=== PATIENT | male | born 1965 | race African-American/Black ===

== ENCOUNTER 2021-12-05 05:47 | Inpatient (IN) | payer BC, OTHER ==
[~2021-12-05] VITALS: Ht 200.7 cm; Wt 147.4 kg
--- NOTE | 2021-12-05 06:00 | NUR ---
TO ER BED 2. BIBS C/O L SIDED CHEST PRESSURE RADIATING TO THE L ARM. PT DENIES AND N/V OR SOB. CHANGED INTO GOWN. CONNECTED TO MONITOR. NOT IN RESPIRATORY DISTRESS. AWAITING MD PEREZ
--- NOTE | 2021-12-05 06:07 | NUR ---
LAB AT BEDSIDE
--- NOTE | 2021-12-05 06:09 | NUR ---
PAGED SCHOOL BUSINESS ADMINISTRATOR.
[2021-12-05] MEDS ORDERED: ASPIRIN 325 MG TABLET ONE (06:20)
--- NOTE | 2021-12-05 06:23 | NUR ---
XRAY AT BEDSIDE
[2021-12-05] MEDS ORDERED: ASPIRIN 325 MG TABLET PO ONE (06:30)
[2021-12-05 06:42] LABS: BASOPHILS # (AUTO) 0.1 K/uL (0.0-0.2); BASOPHILS % (AUTO) 0.7 % (0.0-2.0); EOSINOPHILS % (AUTO) 2.6 % (0.0-6.0); HEMATOCRIT 40 % (39-51); HEMOGLOBIN 13.1 g/dL (13.5-17.5); LYMPHOCYTES # (AUTO) 3.5 K/uL (0.8-4.8); LYMPHOCYTES % (AUTO) 37.6 % (20.0-44.0); MEAN CORPUSCULAR HGB CONC 33 g/dl (31.0-36.0); MEAN CORPUSCULAR VOLUME 82 fL (80-96); MONOCYTES # (AUTO) 0.9 K/uL (0.1-1.30); MONOCYTES % (AUTO) 9.3 % (2.0-12.0); NEUTROPHILS # (AUTO) 4.7 K/uL (1.8-8.9); NEUTROPHILS % (AUTO) 49.8 % (43.0-81.0); PLATELET COUNT (AUTO) 241 K/uL (150-450); RED BLOOD CELL COUNT(AUTO) 4.87 MIL/uL (4.5-6.0); WHITE BLOOD COUNT (AUTO) 9.4 K/uL (4.3-11.0)
[2021-12-05 07:09] LABS: CARBON DIOXIDE 14 mmol/L (21-32); CHLORIDE 102 mmol/L (98-107); CREATININE 1.1 mg/dL (0.6-1.3); GLUCOSE 141 mg/dL (74-106); POTASSIUM 3.7 mmol/L (3.5-5.1); SODIUM SERUM 136 mmol/L (136-145); UREA NITROGEN, BLOOD 17 mg/dL (7-18)
--- NOTE | 2021-12-05 07:26 | NUR ---
COVID ANTIGEN SWAB COLLECTED AND SENT TO LAB
--- NOTE | 2021-12-05 08:10 | NUR ---
MOVE SHEET SUBMITTED.
[2021-12-05] MEDS ORDERED: HYDR25TA4 PO (08:30)
[2021-12-05] MEDS ORDERED: AMLO-212 PO (08:30)
[2021-12-05] MEDS ORDERED: AMLODIPINE BESYLATE 5 MG TABLET PO ONE (11:00)
[2021-12-05] MEDS ORDERED: HYDROCHLOROTHIAZIDE 25 MG TABLET PO ONE (11:00)
[2021-12-05] MEDS ORDERED: AMLODIPINE BESYLATE 5 MG TABLET ONE (11:03)
[2021-12-05] MEDS ORDERED: HYDROCHLOROTHIAZIDE 25 MG TABLET ONE (11:03)
--- NOTE | 2021-12-05 11:06 | NUR ---
[facility] CALLED FIXED INCOME DIRECTOR PAGED.
--- NOTE | 2021-12-05 12:09 | NUR ---
room 320-2
[2021-12-05] MEDS ORDERED: ACETAMINOPHEN 325 MG TABLET PO PRN (13:00)
[2021-12-05] MEDS ORDERED: MAGNESIUM HYDROXIDE 30 ML UDC PO PRN (13:00)
[2021-12-05] MEDS ORDERED: MORPHINE SULFATE INJ 2 MG/ML DISP.SYRIN IV PRN (13:00)
[2021-12-05] MEDS ORDERED: MAG HYDROX/AL HYDROX/SIMETH 30 ML UDC PO PRN (13:00)
[2021-12-05] MEDS ORDERED: ONDANSETRON HCL/PF 4 MG/2 ML VIAL IVP PRN (13:00)
[2021-12-05] MEDS ORDERED: NITROGLYCERIN 0.4 MG/TAB BOTTLE SL PRN (13:00)
--- NOTE | 2021-12-05 13:22 | NUR ---
REPORT GIVEN TO JAYDE MILLS OF TELE UNIT
[2021-12-05 14:05] VITALS: BP 154/94
--- NOTE | 2021-12-05 14:05 | NUR ---
SALVAGE INSPECTOR WOOD PARTSDIRECTOR REGULATORY AFFAIRS NOTES RECEIVED PATIENT FROM ER. REPORT GIVEN BY GENE ABERNATHY. PATIENT REPORTED NO SIGNS OF CHEST PRESSURE AND LEFT ARM WEAKNESS DURING ADMISSION. VITAL SIGNS IS WITHIN NORMAL LEVEL. NO SIGNS OF DISCOMFORT AND PAIN AT THIS MOMENT; ROOM AIR. IV IS IN RIGHT AC, 18G SL; INTACT AND PATENT. PATIENT BROUGHT BY A GURKINGSLEY. WILL CONTINUE TO MONITOR FOR JANNET.
[2021-12-05 16:00] VITALS: BP 154/94
--- NOTE | 2021-12-05 18:41 | NUR ---
TELEPHONE SUPERVISOR NOTES PATIENT REFUSED TO DEPOSIT HIS MONEY ($[phone]) & DEBIT & CREDIT CARD IN THE SAFE. AMOUNT IN THE BELONGING SHEET IS VERIFIED.
--- NOTE | 2021-12-05 18:43 | NUR ---
BAKER APPRENTICE CLOSING NOTES PATIENT IS AWAKE, ALERT & ORIENTED X 4. PATIENT HAS NO SIGNS OF CHEST PRESSURE AND LEFT ARM WEAKNESS AT THIS MOMENT. VITAL SIGNS IS WITHIN NORMAL LEVEL. NO SIGNS OF DISCOMFORT AND PAIN AT THIS MOMENT; ROOM AIR. IV IS IN RIGHT AC, 18G SL; INTACT AND PATENT. ALL BELONGINGS ARE BY THE BEDSIDE AND PATIENT REFUSED TO DEPOSIT MONEY & OTHER MONETARY POSSESSION IN THE SAFE. PATIENT SEEN BY DR. JORGE. WILL ENDORSE PATIENT TO INCOMING SHIFT FOR JANNET.
--- NOTE | 2021-12-05 19:30 | NUR ---
RN OPENING NOTES RECEIVED PT IN BED, AWAKE, FAMILY AT BEDSIDE. AOx4, ABLE TO MAKE NEEDS KNOWN. ON RA AND TOLERATING WELL. NO SOB NOTED. NO S/SX OF RESPIRATORY DISTRESS NOTED. TELE MONITOR DETECTS SINUS RHYTHM WITH RATE OF 74. IV ACCESS IN LAC #18G. IV IS INTACT, PATENT, AND FLUSHING WELL. SAFETY PRECAUTIONS IN PLACE: BED IN LOWEST, LOCKED POSITION, SIDERAILS UPx2, AND BRAKES ON. TABLE AND CALL LIGHT WITHIN REACH. WILL CONTINUE TO MONITOR.
[2021-12-05 20:00] VITALS: BP 166/94
[2021-12-05] MEDS: METOPROLOL TARTRATE 50 MG TABLET PO SCH ×2 (21:00→21:14)
[2021-12-05] MEDS: SIMVASTATIN 20 MG TABLET PO SCH ×2 (21:14→21:19)
--- NOTE | 2021-12-05 21:19 | NUR ---
PATIENT REFUSED MEDS (SIMVASTATIN AND METOPROLOL) STATING "THAT'S NOT WHAT I TAKE AT HOME." EXPLAINED WHAT MEDICATIONS WERE AND WHY THEY WERE BEING GIVEN AND STILL REFUSED SAID "DOCTOR DIDN'T EXPLAIN IT TO ME. I'M NOT GOING TO TAKE THAT. I DON'T MESS WITH ANY OF THAT." WILL CONTINUE TO MONITOR.
[2021-12-06] VITALS: BP 132/75
[2021-12-06 06:35] LABS: BASOPHILS # (AUTO) 0.1 K/uL (0.0-0.2); BASOPHILS % (AUTO) 0.7 % (0.0-2.0); EOSINOPHILS % (AUTO) 2.2 % (0.0-6.0); HEMATOCRIT 40 % (39-51); HEMOGLOBIN 13.1 g/dL (13.5-17.5); LYMPHOCYTES # (AUTO) 3.1 K/uL (0.8-4.8); MEAN CORPUSCULAR HGB CONC 33 g/dl (31.0-36.0); MEAN CORPUSCULAR VOLUME 82 fL (80-96); MONOCYTES # (AUTO) 0.8 K/uL (0.1-1.30); MONOCYTES % (AUTO) 9.4 % (2.0-12.0); NEUTROPHILS # (AUTO) 4.4 K/uL (1.8-8.9); NEUTROPHILS % (AUTO) 51.7 % (43.0-81.0); PLATELET COUNT (AUTO) 249 K/uL (150-450); RED BLOOD CELL COUNT(AUTO) 4.84 MIL/uL (4.5-6.0); WHITE BLOOD COUNT (AUTO) 8.5 K/uL (4.3-11.0)
[2021-12-06 06:43] VITALS: BP 130/81
--- NOTE | 2021-12-06 06:50 | NUR ---
RN CLOSING NOTES PT IN BED, AWAKE, WATCHING VIDEOS ON PHONE. AOx4, ABLE TO MAKE NEEDS KNOWN. ON RA AND TOLERATING WELL. NO SOB NOTED. NO S/SX OF RESPIRATORY DISTRESS NOTED. TELE MONITOR DETECTS SINUS RHYTHM WITH RATE OF 74. IV ACCESS IN LAC #18G. IV IS INTACT, PATENT, AND FLUSHING WELL. ALL ORDERS CARRIED OUT. ALL NEEDS MET. PT KEPT CLEAN AND DRY. SAFETY PRECAUTIONS IN PLACE: BED IN LOWEST, LOCKED POSITION, SIDERAILS UPx2, AND BRAKES ON. TABLE AND CALL LIGHT WITHIN REACH. WILL ENDORSE TO ONCOMING SHIFT FOR JANNET.
[2021-12-06 07:07] LABS: CREATININE 0.9 mg/dL (0.6-1.3); MAGNESIUM 1.9 mg/dL (1.8-2.4); POTASSIUM 3.6 mmol/L (3.5-5.1)
[2021-12-06] MEDS: PANTOPRAZOLE 40 MG TABLET.DR PO SCH ×2 (07:30→08:19)
--- NOTE | 2021-12-06 07:30 | NUR ---
TICKET MAKER OPENING NOTE Patient in bed, asleep. A/O x 4. On room air, breathing evenly and unlabored. No SOB or s/s of distress noted. IV access on LAC #18, SL intact and patent. On tele monitoring showing SR, HR on the 70's. Safety precautions in place: bed in low, locked position; siderails up x 2; call light within reach. Will continue ot monitor.
[2021-12-06] MEDS: METOPROLOL TARTRATE 50 MG TABLET PO SCH (08:20)
--- NOTE | 2021-12-06 08:30 | NUR ---
RN NOTE Patient refused Metoprolol and Protonix, explained the benefits of the medications, patient still refused.
[2021-12-06] MEDS ORDERED: CT SWABBABLE VALVE TRANS SET 1 EA INFUS.SET MC ONE (08:51)
[2021-12-06] MEDS ORDERED: METOPROLOL TARTRATE INJ 5 MG/5 ML AMPUL ONE ×3 (08:51→10:07)
[2021-12-06] MEDS ORDERED: NITROGLYCERIN 0.4 MG/TAB BOTTLE ONE (08:51)
[2021-12-06] MEDS ORDERED: IOHEXOL-350 100 ML VIAL IV ONE (08:51)
[2021-12-06] MEDS ORDERED: IV NS 0.9% 250 ML IV ONE (08:51)
[2021-12-06] MEDS ORDERED: AMLODIPINE BESYLATE 5 MG TABLET PO SCH (09:00)
[2021-12-06] MEDS ORDERED: ASPIRIN EC 81 MG TABLET.DR PO SCH (09:00)
[2021-12-06] MEDS ORDERED: HYDROCHLOROTHIAZIDE 25 MG TABLET PO SCH (09:00)
--- NOTE | 2021-12-06 09:00 | NUR ---
RN NOTE Patient brought down to radiology for CTA of heart.
[2021-12-06 09:07] LABS: THYROID STIMULATING HORMONE 1.874 uIU/mL (0.358-3.74)
[2021-12-06] MEDS: METOPROLOL TARTRATE INJ 5 MG/5 ML AMPUL IVP PRN ×7 (09:36→10:06)
[2021-12-06] MEDS ORDERED: NITROGLYCERIN 0.4 MG/TAB BOTTLE SL PRN (10:00)
[2021-12-06 10:06] VITALS: BP 138/89
--- NOTE | 2021-12-06 10:32 | NUR ---
RN NOTE Patient brought back to room 320-2, tolerated procedure well.
[2021-12-06] MEDS ORDERED: Aspirin Ec PO (14:00)
--- NOTE | 2021-12-06 14:39 | NUR ---
DISCHARGE NOTE Received order for discharge. Patient is A/O x 4, able to make needs known. Stable on room air, breathing evenly and unlabored. No SOB or s/s of distress noted. Patient denies any pain or discomfort at this time. Discharge instructions given to patient and , both verbally and in written form. Verbalized understanding. All belongings accounted for, belonging sheet signed. IV access removed, catheter tip intact. Pressure dressing applied, no signs of bleeding noted. ID band removed. Patient left in stable condition with via private car.
== END 2021-12-06 14:30 | disposition home or self-care (01) | DRG 206 ==
LOC: ER 05:49 → TELE 12:15 → MED 12-06 09:53
DX: M94.0 Chondrocostal junction syndrome [Tietze] (principal); E66.9 Obesity, unspecified; Z20.822 Contact with and (suspected) exposure to COVID-19; I10 Essential (primary) hypertension; E11.9 Type 2 diabetes mellitus without complications; Z68.36 Body mass index [BMI] 36.0-36.9, adult; G47.33 Obstructive sleep apnea (adult) (pediatric)
CPT/HCPCS: 36415; 71045-TC; 75574; 80048-TC; 80061-TC; 83735-TC; 84100-TC; 84443-TC; 84484-TC; 85025-TC; 87081-TC; 93307-TC; C9803; G0378; J3490; J7050; Q9967

== ENCOUNTER 2021-12-13 21:26 | Emergency (ER) | payer BC ==
[~2021-12-13] VITALS: Ht 208.3 cm; Wt 147.4 kg
[~2021-12-13 21:26] MED LIST: AMLO-212 PO; Aspirin Ec PO; HYDR25TA4 PO
[2021-12-13] MEDS ORDERED: KETOROLAC TROMETHAMINE INJ 30 MG/ML VIAL ONE (22:38)
--- NOTE | 2021-12-13 22:39 | NUR ---
TO ER BED 2. BIBSELF C/O HIGH BP HX HYPERTENSION, NON COMPLIANT WITH BP MED THIS AM. DENIES ANY PAIN AT THIS TIME. CONNECTED TO MONITOR. AWAITING MD PEREZ
--- NOTE | 2021-12-13 22:42 | NUR ---
PT REFUSED IV LINE AND IV MD JASVIR AWARE
--- NOTE | 2021-12-13 22:43 | NUR ---
LIZA HUYNH AT BEDSIDE FOR EKG
--- NOTE | 2021-12-13 22:44 | NUR ---
LAB AT BEDSIDE
[2021-12-13] MEDS ORDERED: KETOROLAC TROMETHAMINE INJ 30 MG/ML VIAL IV ONE (23:00)
[2021-12-13 23:09] LABS: BASOPHILS # (AUTO) 0.1 K/uL (0.0-0.2); BASOPHILS % (AUTO) 0.7 % (0.0-2.0); EOSINOPHILS % (AUTO) 2.4 % (0.0-6.0); HEMATOCRIT 41 % (39-51); HEMOGLOBIN 13.4 g/dL (13.5-17.5); LYMPHOCYTES % (AUTO) 30.4 % (20.0-44.0); MEAN CORPUSCULAR HGB CONC 32 g/dl (31.0-36.0); MEAN CORPUSCULAR VOLUME 82 fL (80-96); MONOCYTES # (AUTO) 0.9 K/uL (0.1-1.30); MONOCYTES % (AUTO) 8.7 % (2.0-12.0); NEUTROPHILS # (AUTO) 5.7 K/uL (1.8-8.9); NEUTROPHILS % (AUTO) 57.8 % (43.0-81.0); PLATELET COUNT (AUTO) 232 K/uL (150-450); RED BLOOD CELL COUNT(AUTO) 5.08 MIL/uL (4.5-6.0); WHITE BLOOD COUNT (AUTO) 9.9 K/uL (4.3-11.0)
[2021-12-13 23:20] LABS: CALCIUM, SERUM 9.3 mg/dL (8.5-10.1); CARBON DIOXIDE 29 mmol/L (21-32); CHLORIDE 99 mmol/L (98-107); CREATININE 1.2 mg/dL (0.6-1.3); GLUCOSE 151 mg/dL (74-106); POTASSIUM 3.3 mmol/L (3.5-5.1); SODIUM SERUM 133 mmol/L (136-145); UREA NITROGEN, BLOOD 12 mg/dL (7-18)
[2021-12-13 23:26] LABS: ALANINE AMINOTRANSFERASE 32 U/L (12-78); ALBUMIN 3.3 g/dL (3.4-5.0); ALKALINE PHOSPHATASE 63 U/L (46-116); ASPARTATE AMINOTRANSFERASE 14 U/L (15-37); BILIRUBIN,DIRECT 0.1 mg/dL (0.0-0.2); BILIRUBIN,TOTAL 0.4 mg/dL (0.2-1.0); TOTAL PROTEIN, SERUM 7.8 g/dL (6.4-8.2)
--- NOTE | 2021-12-14 00:56 | NUR ---
LAB AT BEDSIDE FOR REPEAT TROP
--- NOTE | 2021-12-14 01:57 | NUR ---
Patient discharged to home in stable condition. Written and verbal after care instructions given. Patient verbalizes understanding of instruction.
[2021-12-14 03:29] VITALS: BP 135/82
== END 2021-12-14 03:29 | disposition home or self-care (01) ==
LOC: ER 21:37
DX: I10 Essential (primary) hypertension (principal); F43.9 Reaction to severe stress, unspecified; Z79.899 Other long term (current) drug therapy; Z79.82 Long term (current) use of aspirin
CPT/HCPCS: 36415; 80048-TC; 80076-TC; 84484-TC; 85025-TC; 85730-TC; J1885